=== PATIENT | male | born 1970 | race Asian ===

== ENCOUNTER 2020-11-01 23:43 | Emergency (ER) | payer OTHER ==
[~2020-11-01] VITALS: Ht 172.7 cm; Wt 63.5 kg
[2020-11-02 00:43] LABS: PLATELET COUNT 209 K/uL (142-355)
[2020-11-02 00:57] LABS: PARTIAL THROMBOPLASTIN TIME 21.9 SECONDS (24.5-33.6)
[2020-11-02 01:00] LABS: POTASSIUM 4.2 mmol/L (3.6-5.2); SODIUM 142 mmol/L (136-145)
[2020-11-02 01:50] VITALS: BP 153/93; TEMP 98.1
== END 2020-11-02 01:50 | disposition home or self-care (01) ==
LOC: ED 23:43
PROVIDERS: Hospitalist
DX: J06.9 Acute upper respiratory infection, unspecified (principal); J40 Bronchitis, not specified as acute or chronic; R11.2 Nausea with vomiting, unspecified; E86.0 Dehydration; Z86.16 Personal history of COVID-19
CPT/HCPCS: 36415; 80053; 82550; 83880; 84484; 85027; 85610; 85730; 93005; 96360; 96365; 96376; 99284; J0696; J1100; J2405

== ENCOUNTER 2021-09-29 10:34 | Emergency (ER) | payer OTHER ==
[~2021-09-29] VITALS: Ht 172.7 cm; Wt 74.8 kg
[2021-09-29 12:20] VITALS: BP 138/97; TEMP 97.9
== END 2021-09-29 12:30 | disposition home or self-care (01) ==
LOC: ED 10:34
PROC: 2W3DX1Z Immobilization of Left Lower Arm using Splint (ICD-10-PCS; principal; 2021-09-29)
PROC: 2W3LX1Z Immobilization of Right Lower Extremity using Splint (ICD-10-PCS; 2021-09-29)
DX: S71.151A Open bite, right thigh, initial encounter (principal); S71.131A Puncture wound without foreign body, right thigh, initial encounter; S70.311A Abrasion, right thigh, initial encounter; S80.02XA Contusion of left knee, initial encounter; S80.01XA Contusion of right knee, initial encounter; S60.212A Contusion of left wrist, initial encounter; S80.212A Abrasion, left knee, initial encounter; W54.0XXA Bitten by dog, initial encounter; W18.39XA Other fall on same level, initial encounter; Y92.89 Other specified places as the place of occurrence of the external cause
CPT/HCPCS: 90471; 90715; 96372; 99283; J2270; J2550